=== PATIENT | male | born 1985 | race Caucasian/White ===

== ENCOUNTER 2020-01-16 14:07 | Outpatient (REF) | payer BC, SELFPAY ==
[2020-01-20 05:43] LABS: Patient Race White; SARS-CoV-2 RNA Undetected (Undetected); SARS-CoV-2 Specimen Source Nasal
== END 2020-01-16 14:27 ==
LOC: NCHCN 14:07
PROVIDERS: Visit Provider Nurse Practitioner Family
DX: Z20.828 Contact with and (suspected) exposure to other viral communicable diseases (principal)
CPT/HCPCS: U0003

== ENCOUNTER 2023-12-21 22:08 | Outpatient (REF) | payer BC, SELFPAY ==
[2023-12-21 22:22] LABS: Calculated LDL 127 mg/dL (<100); Cholesterol 210 mg/dL (<200); Glucose 94 mg/dL (74-106); HDL Cholesterol 48 mg/dL (40-60); Triglyceride 176 mg/dL (<150)
[2023-12-23 15:07] LABS: Hepatitis C Ab w Rflx HCV PCR Negative (Negative)
== END 2023-12-21 22:09 | disposition home or self-care (01) ==
LOC: NCHCN 22:08
PROVIDERS: Visit Provider Nurse Practitioner Family
DX: Z00.00 Encounter for general adult medical examination without abnormal findings (principal)
CPT/HCPCS: 80061; 82947; 86803